=== PATIENT | female | born 1980 | race Caucasian/White ===

== ENCOUNTER 2019-11-20 18:27 | Inpatient (IN) | payer SELFPAY ==
[2019-11-20 19:00] LABS: Influenza A Molecular Negative (Negative); Influenza B Molecular Negative (Negative)
[2019-11-20] MEDS ORDERED: NS 0.9% 1000 ML** 1,000 ML IV.FLUID IV ONE (21:00)
--- NOTE | 2019-11-20 21:00 | ED ---
Influenza-Like Illness - HPI Summary HPI Summary: 39 year old F with hx splenectomy arriving via private car to [facility] accompanied by complains of fever, sore throat, cough, nausea/vomiting/diarrhea, myalgia x2 days. No rash. No recent travel hx. Otherwise healthy. The patient rates the pain 9/10 in severity. Symptoms aggravated by nothing. Symptoms alleviated by nothing. Medications reviewed. - History of Current Complaint Chief Complaint: EDFluSymptoms Hx Obtained From: Patient Onset/Duration: Lasting Days - 2, Still Present Severity: Severe - 05/20 - Allergy/Home Medications Allergies/Adverse Reactions: Allergies Allergy/AdvReac Type Severity Reaction Status Date / Time No Known Allergies Allergy Verified 12/07/18 14:12 Home Medications: Home Medications Guaifenesin [Mucinex] 600 mg PO DAILY PRN 09/15/12 [History Confirmed 08/16/16] Acetaminophen TAB* [Tylenol TAB*] 650 mg PO Q6H PRN #0 tab 08/19/16 [Rx] Amoxicillin/Clavulanate TAB* [Augmentin TAB 875*] 875 mg PO BID #14 tab [Rx] Clindamycin Cap(NF) [Clindamycin Cap 300 mg Cap(NF)] 300 mg PO TID #21 cap 08/19 [Rx] Ibuprofen TAB* [Motrin TAB* 600 MG] 600 mg PO Q6H PRN #0 tab 08/19/16 [Rx] PMH/Surg Hx/FS Hx/Imm Hx Endocrine/Hematology History: Reports: Other Endocrine/Hematological Disorders - splenectomy Denies: Hx Diabetes, Hx Thyroid Disease Cardiovascular History: Denies: Hx Hypertension Respiratory History: Denies: Hx Asthma, Hx Chronic Obstructive Pulmonary Disease (COPD) GI History: Denies: Hx Ulcer - Surgical History Surgery Procedure, Year, and Place: SPLENECTOMY- r/t 2009 Infectious Disease History: No Infectious Disease History: Denies: Hx Clostridium Difficile, Hx Hepatitis, Hx Human Immunodeficiency Virus (HIV), Hx of Known/Suspected MRSA, Hx Shingles, Hx Tuberculosis, Traveled Outside the [place] in Last 30 Days - Family History Known Family History: Negative: Cardiac Disease - Social History Alcohol Use: None Hx Substance Use: No Substance Use Type: Reports: None Hx Tobacco Use: No Smoking Status (MU): Never Smoked Tobacco Review of Systems Positive: Fever Positive: Sore Throat Positive: Cough Positive: Vomiting, Diarrhea, Nausea Positive: Myalgia Negative: Rash All Other Systems Reviewed And Are Negative: Yes Physical Exam - Summary Physical Exam Summary: Appearance: Ill-appearing woman lying in bed comfortably in no acute distress Skin: Warm, dry, no obvious rash Eyes: sclera anicteric, no conjunctival pallor HENT: mucous membranes moist, pharynx appears normal Neck: Supple, nontender Respiratory: Clear to auscultation, no signs of respiratory distress Cardiovascular: Normal S1, S2. No murmurs. Normal distal pulses in tibial and radial bilaterally. Abdomen: Soft, nontender, normal active bowel sounds present Musculoskeletal: Normal, Strength/ROM Intact Neurological: A&Ox3, awake and alert, mentation is normal, speech is fluent and appropriate Psychiatric: affect is normal, does not appear anxious or depressed Triage Information Reviewed: Yes Vital Signs On Initial Exam: Initial Vitals Temp Pulse Resp BP Pulse Ox 100.3 F 101 18 140/94 98 11/20/19 18:31 11/20/19 18:31 11/20/19 18:31 11/20/19 18:31 11/20/19 18:31 Vital Signs Reviewed: Yes Procedures - Sedation Patient Received Moderate/Deep Sedation with Procedure: No Diagnostics - Vital Signs Vital Signs Temp Pulse Resp BP Pulse Ox 11/20/19 19:49 101.4 F 119 18 163/102 97 11/20/19 18:31 100.3 F 101 18 140/94 98 - Laboratory Lab Results: Lab Results 11/20/19 Range/Units 18:35 Influenza A (Rapid) Negative (Negative) Influenza B (Rapid) Negative (Negative) Result Diagrams: 11/25/19 04:57 11/25/19 04:57 Lab Statement: Any lab studies that have been ordered have been reviewed, and results considered in the medical decision making process. - Radiology CXR Radiology Interpretation Completed By: ED Physician - NO ACUTE PROCESS. Pending official report. Re-Evaluation - Re-Evaluation First Eval Re-Evaluation Time: 23:18 Comment: Abbi Ga aware Second Eval Re-Evaluation Time: 23:24 Comment: Abbi Ga called back after speaking with Dr. Brown. They recommend sending off COVID19 and respiratory viral panel for testing and admitting patient to negative pressure unit in ICU Flu Symptom Course/Dx - Course Course Of Treatment: 39 y/o F with hx splenectomy c/o fever, sore throat, cough , nausea/vomiting/diarrhea, myalgia x2 days. No recent travel hx. Otherwise healthy. She is an ill-appearing woman lying in the stretcher comfortably in no acute distress. Bloodwork results with no significant abnormalities except for WBC 31.1, absolute neuts 28.0, absolute lymphs 0.7, absolute monos 2.3, INR 1.29, carbon dioxide 19, AST 12. Influenza tests negative. CXR shows no acute process. In the ED course, the patient was given normal saline fluids, Zofran, Tylenol, morphine, Compazine. Patient has an elevated WBC. No clear source of infection. She was started on vancomycin and Zosyn. Spoke with infectious disease. They recommend collecting and sending COVID19 and respiratory viral panel testing and admitting patient to negative pressure unit in ICU. Spoke with Dr. Bullard. He agrees to admit patient. The patient will be admitted to the hospitalist. - Diagnoses Provider Diagnoses: Sepsis - Physician Notifications Discussed Care Of Patient With: Yovani Bullard Time Discussed With Above Provider: 23:44 Instructed by Provider To: Admit As Inpatient Discharge ED - Sign-Out/Discharge Documenting (check all that apply): Patient Departure - Discharge Plan Condition: Stable Disposition: ADMITTED TO [facility] - Billing Disposition and Condition Condition: STABLE Disposition: Admitted to [facility] - Attestation Statements Document Initiated by Violet: Yes Documenting Scribe: Eneida Corcoran Provider For Whom Violet is Documenting (Include Credential): Edison Mejia MD Scribe Attestation: Eneida Renteria, scribed for Edison Mejia MD on 11/25/19 at 0600. Scribe Documentation Reviewed: Yes Provider Attestation: The documentation as recorded by the Eneida smith accurately reflects the service I personally performed and the decisions made by me, Edison Mejia MD Status of Scribe Document: Viewed
[2019-11-20] MEDS ORDERED: Ondansetron INJ* 2 MG/ML VIAL IV ONE (21:01)
[2019-11-20] MEDS ORDERED: Acetaminophen TAB* 325 MG PO ONE (21:02)
[2019-11-20] MEDS ORDERED: Morphine 4 MG/ML VIAL (1 ml) 4 MG/ML VIAL IV ONE (21:35)
[2019-11-20] MEDS ORDERED: PROCHLORPERAZINE INJ 5 MG/ML 2 ML VIAL IV ONE (22:36)
[2019-11-20 22:40] LABS: Hematocrit 43 % (35-47); Hemoglobin 14.4 g/dL (12.0-16.0); Mean Corpuscular HGB Conc 34 g/dL (31-36); Mean Corpuscular Hemoglobin 30 pg (27-31); Mean Corpuscular Volume 88 fL (80-97); Mean Platelet Volume 7.7 fL (7.4-10.4); Platelet Count 285 10^3/uL (150-450); Red Blood Count 4.84 10^6 /uL (3.70-4.87); Red Cell Distribution Width 14 % (10-15); White Blood Count 31.1 10^3/uL (3.5-10.8)
[2019-11-20 22:44] LABS: Albumin 4.1 g/dL (3.2-5.2); Calcium 9.3 mg/dL (8.6-10.3); Potassium 3.5 mmol/L (3.5-5.0); Total Bilirubin 0.4 mg/dL (0.2-1.0)
[2019-11-20 22:50] LABS: Albumin/Globulin Ratio 1.4 (1-3); BUN/Creatinine Ratio 11.1 (8-20); EGFR African American 110.3 (>60); EGFR Non-African American 91.1 (>60); Total Protein 7.1 g/dL (6.4-8.9)
[2019-11-20 22:57] LABS: Activated Partial Thrombo Time 31.7 seconds (26.0-38.0); INR 1.29 (0.82-1.09)
[2019-11-20 23:03] LABS: ABS Lymphocytes 0.7 10^3/ul (1.0-4.8); ABS Monocytes 2.3 10^3/ul (0-0.8); Lymphocyte % 2.3 %
[2019-11-20 23:15] LABS: Troponin I 0.01 ng/mL (<0.03)
[2019-11-20] MEDS ORDERED: Piperacillin/Tazobac ADVAN(*) 3.375 GM in NS 0.9% 100 ML* 100 ML IVPB ONE (23:15)
[2019-11-20] MEDS ORDERED: Vancomycin(*) 1,000 MG - ED ONCE IV ONE ×2 (23:30)
[2019-11-20] MEDS ORDERED: Vancomycin(*) 1,000 MG VIAL IVPB SCH (23:45)
[2019-11-21] MEDS ORDERED: NS 0.9% 1000 ML** 1,000 ML IV ONE (00:07)
[2019-11-21] MEDS ORDERED: Vancomycin per Pharmacy* NOTE FOLLOW UP SCH (02:00)
[2019-11-21] MEDS ORDERED: Piperacillin/Tazobac ADVAN(*) 3.375 GM in NS 0.9% 100 ML* 100 ML IVPB SCH (04:00)
[2019-11-21] MEDS: NS 0.9% 1000 ML** 1,000 ML IV SCH (04:05)
[2019-11-21 04:48] LABS: Hematocrit 42 % (35-47); Hemoglobin 13.8 g/dL (12.0-16.0); Mean Corpuscular HGB Conc 33 g/dL (31-36); Mean Corpuscular Hemoglobin 29 pg (27-31); Mean Corpuscular Volume 88 fL (80-97); Mean Platelet Volume 7.8 fL (7.4-10.4); Platelet Count 324 10^3/uL (150-450); Red Cell Distribution Width 14 % (10-15); White Blood Count 26.5 10^3/uL (3.5-10.8)
[2019-11-21 04:49] LABS: ABS Basophils 0.1 10^3/ul (0-0.2); ABS Lymphocytes 1.5 10^3/ul (1.0-4.8); Lymphocyte % 5.5 %
[2019-11-21 05:01] LABS: BUN/Creatinine Ratio 8.6 (8-20); Calcium 8.2 mg/dL (8.6-10.3); EGFR African American 113.9 (>60); EGFR Non-African American 94.2 (>60); Magnesium 1.8 mg/dL (1.9-2.7); Potassium 3.5 mmol/L (3.5-5.0)
[2019-11-21] MEDS ORDERED: Acetaminophen TAB* 325 MG PO PRN (06:53)
[2019-11-21] MEDS ORDERED: Ketorolac INJ* 30 MG/ML 1 ML VIAL IV ONE (06:55)
[2019-11-21 07:29] LABS: Urine Appearance Clear; Urine Color Straw
[2019-11-21 07:30] LABS: Urine Bilirubin Negative (Negative); Urine Blood Negative (Negative); Urine Glucose Negative (Negative); Urine Ketones 1+ (Negative); Urine Nitrite Negative (Negative); Urine Protein Negative (Negative); Urine Specific Gravity 1.025 (1.010-1.030); Urine Urobilinogen Negative (Negative)
[2019-11-21] MEDS: Vancomycin(*) 1,000 MG in NS 0.9% 250 ML* 250 ML IV SCH ×2 (08:06→16:17)
[2019-11-21] MEDS ORDERED: Cefepime 2 GM in Dextrose(*) 2 GM/50 ML BAG IV SCH (12:00)
[2019-11-21] MEDS ORDERED: cefTRIAXone(*) 2 GM in NS 0.9% 100 ML* 100 ML IVPB SCH ×2 (12:00→20:00)
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
[2019-11-21] MEDS: Ampicillin ADVAN(*) 2 GM in NS 0.9% 100 ML* 100 ML IVPB SCH ×2 (12:46→16:17)
[2019-11-21 13:10] LABS: Rapid Strep Molecular Positive (Negative)
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
[2019-11-21 14:45] LABS: Body Fluid Source Cerebral Spinal
[2019-11-21 15:09] LABS: CSF Glucose 71 mg/dL (40-70)
[2019-11-21] MEDS: Acetaminophen TAB* 325 MG PO SCH ×2 (16:17→21:04)
[2019-11-21] MEDS ORDERED: Ondansetron INJ* 2 MG/ML VIAL IV PRN (16:58)
[2019-11-21] MEDS: Ketorolac INJ* 30 MG/ML 1 ML VIAL IV PUSH PRN (17:43)
[2019-11-21] MEDS: Enoxaparin(*) 40 MG/0.4 ML SYR SUBCUT SCH (17:44)
--- NOTE | 2019-11-21 17:47 | PN ---
Hospitalist Progress Note Date of Service: 11/21/19 Update in plan of care While initially patient was PUI for COVID 19 she has clear source of sepsis from her strep A pharyngitis LP revealed thankfully no e/o meningitis with low CSF cell count no organisms no neutrophils and normal Glu DC all precautions in conjunction with discussion with charge nursing staff Discussed case with Dr. Gao and also with Abbi Ga and Carter Brown
[2019-11-21] MEDS ORDERED: Iohexol 300* (CONTRAST) 10 ML SDV IV ONE (18:01)
[2019-11-21] MEDS: cefTRIAXone(*) 1 GM in NS 0.9% 50 ML* 50 ML IVPB SCH (20:14)
--- NOTE | 2019-11-21 23:31 | PRO ---
DATE OF PROCEDURE: 11/21/19 - ROOM #452 PRE-PROCEDURE DIAGNOSIS: Rule out meningitis. POST-PROCEDURE DIAGNOSIS: Rule out meningitis. SUMMARY: Asked by the Medical Service to do a lumbar puncture for Callie Tipton who presents with altered mental status, fever, elevated white count as well as positive for serology of group A strep. The patient's procedure was consented through her due to the patient's altered mental status. We also did discuss procedure with the patient as well and she elected to proceed. The risks including but not limited to bleeding, bruising, infection, nerve injury were discussed with the patient as well as headache. The patient denies history of coagulopathies. She is not currently on any anticoagulant medication. She is not allergic to any medications. Her home medications include Tylenol as well as ibuprofen. White count is 26.5, hemoglobin 13, hematocrit 42, platelet count 324. INR 1.29. PTT is 31.7. At this point, although the patient's coagulopathies are slightly coagulopathic with borderline INR due to her severe toxic status as well as her symptomatology , the risks for proceeding with lumbar puncture are outweighed by the risk for not being able to diagnose her current underlying cause of altered mental status , fever, elevated white count. This also in light of the fact that she has tested for strep A puts her at risk for meningitis. Again, the risks and benefits of the procedure were discussed with the patient today as well as her by the medical staff and consent was obtained. DESCRIPTION OF PROCEDURE: The patient was placed in the seated position. She was unable to maintain the position independently so nursing did aid in this. Her back was prepped and draped in the usual sterile fashion with chlorhexidine skin prep. A time-out was performed. A 1% lidocaine plain was used to anesthetize the skin and subcutaneous tissues. A 20-gauge introducer along with a 25-gauge Edu needle was used to access the intrathecal space. Crystal clear, free flowing CSF was seen after 2 needle passes. A total of 10 cc of CSF was sent to the lab for further testing as requested by the Medical Service. The patient tolerated the procedure well. She did not experience any focal neurological deficits, paresthesias. There was no neuraxial heme. Her back was then cleansed and dressed with a Band-Aid. I did advice the nursing staff to cleanse her back with soap and water in an effort to remove as much of the chlorhexidine skin prep to avoid skin irritation and they did verbalize understanding. We again advised the patient to lay supine for the next several hours and rest with proper hydration to avoid CSF headaches. She will follow up with me only as needed. [id number]/[facility] #: [id number]
[2019-11-22] MEDS: Acetaminophen TAB* 325 MG PO SCH ×6 (01:09→20:26)
[2019-11-22] MEDS: traMADol TAB* 50 MG PO PRN ×4 (01:09→18:32)
[2019-11-22] MEDS: NS 0.9% 1000 ML** 1,000 ML IV SCH ×2 (02:50→16:35)
[2019-11-22] MEDS: Ketorolac INJ* 30 MG/ML 1 ML VIAL IV PUSH PRN ×3 (02:50→21:03)
[2019-11-22 06:01] LABS: Hematocrit 38 % (35-47); Hemoglobin 12.7 g/dL (12.0-16.0); Mean Corpuscular HGB Conc 33 g/dL (31-36); Mean Corpuscular Hemoglobin 28 pg (27-31); Mean Corpuscular Volume 86 fL (80-97); Mean Platelet Volume 8.2 fL (7.4-10.4); Platelet Count 311 10^3/uL (150-450); Red Blood Count 4.46 10^6 /uL (3.70-4.87); Red Cell Distribution Width 14 % (10-15); White Blood Count 27.9 10^3/uL (3.5-10.8)
[2019-11-22 06:13] LABS: BUN/Creatinine Ratio 9.3 (8-20); Calcium 8.5 mg/dL (8.6-10.3); EGFR African American 153.7 (>60); Potassium 3.4 mmol/L (3.5-5.0)
[2019-11-22 06:43] LABS: ABS Basophils 0.2 10^3/ul (0-0.2); ABS Eosinophils 0.1 10^3/ul (0-0.6); ABS Lymphocytes 1.8 10^3/ul (1.0-4.8); ABS Monocytes 2.9 10^3/ul (0-0.8); ABS Neutrophils 22.9 10^3/ul (1.5-7.7); Eosinophil % 0.4 %; Lymphocyte % 6.5 %
[2019-11-22] MEDS ORDERED: Vancomycin Trough Check NOTE FOLLOW UP ONE (07:30)
[2019-11-22] MEDS ORDERED: Magnesium Sulfate 2 GM IV* 2 GM/50 ML BAG IVPB ONE (07:46)
[2019-11-22] MEDS ORDERED: Potassium Chlor TAB* 20 MEQ TAB.ER PO ONE (07:46)
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
[2019-11-22] MEDS ORDERED: KCL 20 MEQ/100 ML IVPREMIX* 20 MEQ/100 ML BAG IV ONE (08:49)
[2019-11-22] MEDS ORDERED: Benzocaine/Menthol LOZ* 1 LOZENGE PO PRN (09:45)
[2019-11-22] MEDS ORDERED: Lidocaine 2% VISCOUS* 15 ML UDC SWISH SPIT PRN (09:48)
[2019-11-22] MEDS ORDERED: Ketorolac INJ* 15 MG/ML 1 ML VIAL IV PUSH ONE (14:17)
[2019-11-22] MEDS ORDERED: Dexamethasone IV* 4 MG/ML 1 ML (4 MG) IV SLOW PU ONE (14:49)
[2019-11-22] MEDS: Enoxaparin(*) 40 MG/0.4 ML SYR SUBCUT SCH (17:14)
[2019-11-22 17:21] LABS: Urine Benzodiazepine Screen None Detected (None Detect); Urine Opiates Screen None Detected (None Detect)
[2019-11-22] MEDS: cefTRIAXone(*) 1 GM in NS 0.9% 50 ML* 50 ML IVPB SCH (21:03)
[2019-11-22] MEDS ORDERED: Butalb/Acetamin/Caff TAB* 1 TAB PO ONE (21:58)
[2019-11-23] MEDS: traMADol TAB* 50 MG PO PRN (00:23)
[2019-11-23] MEDS: Acetaminophen TAB* 325 MG PO SCH ×2 (00:25→04:39)
[2019-11-23] MEDS: NS 0.9% 1000 ML** 1,000 ML IV SCH ×4 (01:49→20:16)
--- NOTE | 2019-11-23 04:42 | PN ---
Hospitalist Progress Note Date of Service: 11/23/19 Pt had complained of 7/10 headache pain and continued poor sleep. Has been getting tramadol, toradol and throat lozenges. Fiorcet given with reportedly good effect.
[2019-11-23 06:40] LABS: ABS Basophils 0.1 10^3/ul (0-0.2); ABS Lymphocytes 1.1 10^3/ul (1.0-4.8); ABS Monocytes 1.4 10^3/ul (0-0.8); ABS Neutrophils 15.6 10^3/ul (1.5-7.7); Eosinophil % 0.1 %; Hematocrit 35 % (35-47); Mean Corpuscular HGB Conc 34 g/dL (31-36); Mean Corpuscular Hemoglobin 29 pg (27-31); Mean Corpuscular Volume 84 fL (80-97); Nucleated Red Blood Cells % 0.1; Platelet Count 320 10^3/uL (150-450); Red Blood Count 4.17 10^6 /uL (3.70-4.87); Red Cell Distribution Width 14 % (10-15); White Blood Count 18.2 10^3/uL (3.5-10.8)
[2019-11-23] MEDS: Ketorolac INJ* 30 MG/ML 1 ML VIAL IV PUSH PRN ×3 (06:40→20:16)
[2019-11-23 06:56] LABS: BUN/Creatinine Ratio 10.2 (8-20); Calcium 8.7 mg/dL (8.6-10.3); EGFR African American 171.9 (>60); EGFR Non-African American 142.1 (>60); Potassium 3.6 mmol/L (3.5-5.0)
[2019-11-23] MEDS ORDERED: Acetaminophen TAB* 325 MG PO PRN (07:36)
--- NOTE | 2019-11-23 07:36 | PN ---
Subjective Date of Service: 11/23/19 Interval History: Callie continued to have headache overnight; she got a dose of fioricet with some improvement. Tolerating an unrestricted diet (has had mac n cheese and marvel estela so far). Right now the sore throat is worse than the headache. When she takes pills she feels like they get stuck in her throat. Lozenges are helping. Objective Active Medications: Acetaminophen (Tylenol Tab*) 650 mg PO Q4H [facility] Last Admin: 11/23/19 04:39 Dose: Not Given Enoxaparin Sodium (Lovenox(*)) 40 mg SUBCUT Q24H [facility] Last Admin: 11/22/19 17:14 Dose: 40 mg Ceftriaxone Sodium 1 gm/ (Sodium Chloride) 50 mls @ 100 mls/hr IVPB Q24H [facility] Last Admin: 11/22/19 21:03 Dose: 100 mls/hr Sodium Chloride (Ns 0.9% 1000 Ml) 1,000 mls @ 175 mls/hr IV PER RATE [facility] Last Admin: 11/23/19 01:49 Dose: 175 mls/hr Ketorolac Tromethamine (Toradol Inj*) 30 mg IV PUSH Q6H PRN PRN Reason: PAIN - MODERATE Last Admin: 11/23/19 06:40 Dose: 30 mg Lidocaine (Xylocaine 2% Viscous*) 15 ml SWISH SPIT TID PRN PRN Reason: SORE THROAT Ondansetron HCl (Zofran Inj*) 4 mg IV Q8H PRN PRN Reason: NAUSEA Last Admin: 11/22/19 16:29 Dose: 4 mg Throat Lozenges (Chloraseptic Mirella*) 1 mirella PO Q6H PRN PRN Reason: SORE THROAT Last Admin: 11/22/19 10:56 Dose: 1 mirella Tramadol HCl (Ultram*) 75 mg PO Q6H PRN PRN Reason: PAIN - MODERATE Last Admin: 11/23/19 00:23 Dose: 75 mg Vital Signs - 8 hr 11/23/19 11/23/19 11/23/19 00:01 00:23 01:49 Temperature 98.2 F Pulse Rate 63 Respiratory 16 18 20 Rate Blood Pressure 135/76 (mmHg) O2 Sat by Pulse 93 Oximetry 11/23/19 11/23/19 11/23/19 03:17 03:44 04:39 Temperature 97.5 F Pulse Rate 64 Respiratory 16 16 16 Rate Blood Pressure 121/72 (mmHg) O2 Sat by Pulse 97 Oximetry Oxygen Devices in Use Now: None Appearance: more alert than yesterday, tired, but nontoxic appearing Eyes: No Scleral Icterus Ears/Nose/Mouth/Throat: - - dry mucosa. tonsils are edematous and purulent. airway patent. breathing comfortably. Neck: - - +b/l tender adenopathy Respiratory: Symmetrical Chest Expansion and Respiratory Effort, Clear to Auscultation Cardiovascular: NL Sounds; No Murmurs; No JVD, RRR Extremities: No Edema Skin: No Rash or Ulcers Neurological: Alert and Oriented x 3 Result Diagrams: 11/23/19 06:22 11/23/19 06:22 Additional Lab and Data: Lab Results 11/20/19 Range/Units 18:35 Influenza A (Rapid) Negative (Negative) Influenza B (Rapid) Negative (Negative) Microbiology and Other Data: Microbiology 11/20/19 22:25 Aerobic Blood Culture - Preliminary Blood Venous No Growth Day 2 Anaerobic Blood Culture - Preliminary No Growth Day 2 11/20/19 21:32 Aerobic Blood Culture - Preliminary Blood Venous No Growth Day 2 Anaerobic Blood Culture - Preliminary No Growth Day 2 11/21/19 11:58 CSF Gram Stain (Tube 3) - Final Cerebral Spinal Fluid CSF Culture - Preliminary No Growth Day 1 11/21/19 07:05 Legionella Urinary Antigen - Final Urine Negative Legionella Antigen Streptococcus pneumoniae Ag Screen - Final Negative S. pneumo Antigen Assess/Plan/Problems-Billing Assessment: 39 F with history of splenectomy presented on 10/23 with fever, headache, vomiting, sore throat and dry cough. Found to be septic (leucocytosis, fever) secondary to strep pharyngitis. - Patient Problems (1) Sepsis Current Visit: No Status: Acute Comment: -resolved, leukocytosis also improving -continue IVF resuscitation -started on IV abx on 11/20, initially broad spectrum to cover meningitis; de- escalated to cover strep pharyngitis only -LP done: negative for Meningitis -CXR: No acute pathology -Urine: ketones positive -blood culture negative so far -source is pharyngitis (2) Pharyngitis Current Visit: Yes Status: Acute Code(s): J02.9 - ACUTE PHARYNGITIS, UNSPECIFIED SNOMED Code(s): 271889232 Comment: -rapid strep test positive, flu and monospot negative -ceftriaxone day 3 -pain control with ketorolac, lozengez -decadron to decrease inflammation -CT neck negative for abscess (3) History of splenectomy Current Visit: Yes Status: Acute Code(s): Z90.81 - ACQUIRED ABSENCE OF SPLEEN SNOMED Code(s): 517946778 Comment: -has not received prophylactic vaccine -high risk for strept, N. meningitis and Hib. -will need vaccination: MENACWY, MenB, Pneumococcal, HiB as an outpatient (4) DVT prophylaxis Current Visit: No Status: Acute Code(s): AOS6392 - SNOMED Code(s): 637279744 Comment: Edilberto (5) Full code status Current Visit: Yes Status: Acute Code(s): Z78.9 - OTHER SPECIFIED HEALTH STATUS SNOMED Code(s): 046167053 Status and Disposition: Inpatient Still unable to take pills, will need IV abx until able to swallow pills
[2019-11-23] MEDS: Dexamethasone IV* 4 MG/ML 1 ML (4 MG) IV SLOW PU SCH ×3 (08:08→20:08)
[2019-11-23] MEDS: Benzocaine/Menthol LOZ* 1 LOZENGE PO PRN ×3 (08:08→23:46)
[2019-11-23] MEDS: Enoxaparin(*) 40 MG/0.4 ML SYR SUBCUT SCH (17:41)
[2019-11-23] MEDS: cefTRIAXone(*) 1 GM in NS 0.9% 50 ML* 50 ML IVPB SCH (20:07)
[2019-11-24] MEDS ORDERED: Morphine INJ* 2 MG/ML 1 ML SYRINGE (TWO MG - NEW SYRINGE VERSION) IV ONE (00:06)
[2019-11-24] MEDS: Dexamethasone IV* 4 MG/ML 1 ML (4 MG) IV SLOW PU SCH ×2 (01:59→08:01)
[2019-11-24] MEDS: Ketorolac INJ* 30 MG/ML 1 ML VIAL IV PUSH PRN (02:04)
[2019-11-24 06:26] LABS: ABS Basophils 0.1 10^3/ul (0-0.2); ABS Lymphocytes 1.2 10^3/ul (1.0-4.8); ABS Monocytes 0.6 10^3/ul (0-0.8); ABS Neutrophils 14.2 10^3/ul (1.5-7.7); Hematocrit 36 % (35-47); Hemoglobin 12.3 g/dL (12.0-16.0); Lymphocyte % 7.7 %; Mean Corpuscular HGB Conc 34 g/dL (31-36); Mean Corpuscular Hemoglobin 29 pg (27-31); Mean Corpuscular Volume 85 fL (80-97); Mean Platelet Volume 8.5 fL (7.4-10.4); Nucleated Red Blood Cells % 0.1; Platelet Count 392 10^3/uL (150-450); Red Blood Count 4.24 10^6 /uL (3.70-4.87); Red Cell Distribution Width 14 % (10-15); White Blood Count 16.1 10^3/uL (3.5-10.8)
[2019-11-24 06:46] LABS: BUN/Creatinine Ratio 11.8 (8-20); Calcium 9.2 mg/dL (8.6-10.3); EGFR African American 164.2 (>60); EGFR Non-African American 135.7 (>60); Potassium 3.8 mmol/L (3.5-5.0)
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
[2019-11-24] MEDS: NS 0.9% 1000 ML** 1,000 ML IV SCH (08:01)
[2019-11-24] MEDS: Benzocaine/Menthol LOZ* 1 LOZENGE PO PRN ×3 (09:44→21:53)
[2019-11-24] MEDS: Ibuprofen ADULT LIQ* 600 MG/30 ML UDC PO PRN ×3 (11:10→21:43)
[2019-11-24 15:29] LABS: HIV 4th Generation Nonreactive (Nonreactive)
[2019-11-24] MEDS: Enoxaparin(*) 40 MG/0.4 ML SYR SUBCUT SCH (17:48)
[2019-11-24] MEDS: Amoxicillin/Clavulanate TAB* 875 MG PO SCH (21:44)
[2019-11-25] MEDS: Ibuprofen ADULT LIQ* 600 MG/30 ML UDC PO PRN ×2 (03:28→09:22)
[2019-11-25] MEDS: Benzocaine/Menthol LOZ* 1 LOZENGE PO PRN (03:28)
[2019-11-25 05:23] LABS: Hematocrit 36 % (35-47); Hemoglobin 12.1 g/dL (12.0-16.0); Mean Corpuscular HGB Conc 34 g/dL (31-36); Mean Corpuscular Hemoglobin 29 pg (27-31); Mean Corpuscular Volume 85 fL (80-97); Mean Platelet Volume 8.8 fL (7.4-10.4); Platelet Count 387 10^3/uL (150-450); Red Blood Count 4.26 10^6 /uL (3.70-4.87); Red Cell Distribution Width 13 % (10-15); White Blood Count 19.9 10^3/uL (3.5-10.8)
[2019-11-25 05:40] LABS: BUN/Creatinine Ratio 18.8 (8-20); Calcium 8.8 mg/dL (8.6-10.3); EGFR African American 126.3 (>60); EGFR Non-African American 104.4 (>60)
[2019-11-25 06:00] LABS: Potassium 3.9 mmol/L (3.5-5.0)
[2019-11-25 06:38] LABS: ABS Basophils 0.2 10^3/ul (0-0.2); ABS Eosinophils 0.2 10^3/ul (0-0.6); ABS Lymphocytes 4.8 10^3/ul (1.0-4.8); ABS Monocytes 1.9 10^3/ul (0-0.8); ABS Neutrophils 12.8 10^3/ul (1.5-7.7); Eosinophil % 1.1 %; Nucleated Red Blood Cells % 0.1
[2019-11-25 08:12] LABS: C Reactive Protein 12.58 mg/L (<8.01)
[2019-11-25] MEDS ORDERED: methylPREDNISolone TAB* 4 MG PO SCH (09:00)
[2019-11-25] MEDS: Amoxicillin/Clavulanate TAB* 875 MG PO SCH (09:22)
[2019-11-25 11:07] VITALS: BP 124/64
--- NOTE | 2019-11-25 11:36 | PN ---
Subjective Date of Service: 11/25/19 Interval History: Ms. Tipton reports that she is feeling much better. She is able to tolerate oral intake and swallow pills. She is happy and agreeable with the plan for discharge to home. Objective Active Medications: Amoxicillin/Clavulanate Potassium (Augmentin Tab*) 875 mg PO BID [facility] Enoxaparin Sodium (Lovenox(*)) 40 mg SUBCUT Q24H [facility] Ibuprofen (Motrin Liq Adult*) 600 mg PO QID PRN Lidocaine (Xylocaine 2% Viscous*) 15 ml SWISH SPIT TID PRN Methylprednisolone (Medrol Tab*) 4 mg PO DAILY [facility] Throat Lozenges (Chloraseptic Mirella*) 1 mirella PO Q1H PRN Vital Signs: Temp Pulse Resp BP Pulse Ox 98.1 F 74 18 124/64 95 11/25/19 11:06 11/25/19 11:06 11/25/19 11:06 11/25/19 11:06 11/25/19 11:06 Oxygen Devices in Use Now: None Appearance: Female lying in bed in NAD Eyes: No Scleral Icterus Ears/Nose/Mouth/Throat: Mucous Membranes Moist Neck: Trachea Midline Respiratory: Symmetrical Chest Expansion and Respiratory Effort, Clear to Auscultation Cardiovascular: NL Sounds; No Murmurs; No JVD, No Edema Abdominal: NL Sounds; No Tenderness; No Distention Extremities: No Edema Skin: No Rash or Ulcers Neurological: Alert and Oriented x 3, NL Muscle Strength and Tone Nutrition: Taking PO's Result Diagrams: 11/25/19 04:57 11/25/19 04:57 Additional Lab and Data: . Microbiology and Other Data: . Assess/Plan/Problems-Billing Assessment: 39 F with history of splenectomy presented on 10/23 with fever, headache, vomiting, sore throat and dry cough. Found to be septic (leucocytosis, fever) secondary to strep pharyngitis/tonsillitis. - Patient Problems (1) Sepsis Comment: -resolved, WBC remain elevated due to steroids -tolerating oral intake -started on IV abx on 11/20, initially broad spectrum to cover meningitis; de- escalated to cover strep pharyngitis only -LP done: negative for Meningitis -CXR: No acute pathology -Urine: ketones positive -blood culture negative so far -source is pharyngitis (2) Pharyngitis Comment: -Pharyngotonsillitis -rapid strep test positive, flu and monospot negative -switched to oral(started on 11/20- 11/26) -pain control with lozengez; changed to PO NSAIDS -decadron to decrease inflammation -CT neck negative for abscess -Given her sx, we will also rule out Gono/Chlamy- swab sent (3) History of splenectomy Comment: -traumatic -has not received prophylactic vaccine -high risk for strept, N. meningitis and Hib. -will need vaccination: MENACWY, MenB, Pneumococcal, HiB as an outpatient (4) DVT prophylaxis Comment: Edilberto (5) Full code status Comment: Status and Disposition: Inpatient. Discharge to home.
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
[2019-11-25 22:44] LABS: C. trach Amplified RNA Negative (Negative); N Gonorr Amplified RNA Negative (Negative); Source THROAT
== END 2019-11-25 13:20 | disposition home or self-care (01) | DRG 872 ==
LOC: ED 18:27 → MEDTELE 11-21 01:38
PROVIDERS: ADMIT Family Medicine; ATTEND Internal Medicine
PROC: 009U3ZX Drainage of Spinal Canal, Percutaneous Approach, Diagnostic (ICD-10-PCS; principal; 2019-11-21)
DX: A41.9 Sepsis, unspecified organism (principal); J02.0 Streptococcal pharyngitis; R51 Headache; Z90.81 Acquired absence of spleen
CPT/HCPCS: 36415; 70450; 70491; 71045; 80048; 80053; 80202; 80307; 81003; 82945; 83605; 83735; 84157; 84484; 85025; 85610; 85730; 86140; 86308; 87040; 87070; 87205; 87389; 87491; 87591; 87651; 87899; 89051; 96374; 96375; 99284; A9270-GY; G0480; J0692; J0696; J0780; J1100; J1650; J1885; J2270; J2405; J2543; J3370; J3475; J3480; J7509; Q9967

== ENCOUNTER 2023-10-17 04:04 | Inpatient (IN) ==
[2023-10-17 04:40] LABS: Rapid Strep Molecular Positive (Negative)
[2023-10-17] MEDS: Ondansetron ODT 4 mg TAB 4 MG TAB SL ONE (04:50)
[2023-10-17] MEDS: Lactated Ringers 1000 ml BAG 1,000 ML IV ONE (05:50)
[2023-10-17] MEDS ORDERED: Amoxicillin SUSP ORALSYR 80 MG/ML (400 mg/5 ml) PO ONE (06:00)
[2023-10-17 06:04] LABS: Hematocrit 40.8 % (35-45); Hemoglobin 13.6 g/dL (11.5-14.3); Mean Corpuscular Hemoglobin 28.1 pg (27-33); Mean Corpuscular Hgb Conc 33.4 g/dL (31-36); Mean Corpuscular Volume 83.9 fL (80-97); Mean Platelet Volume 7.6 fL (7.5-11.2); Platelet Count 436 10^3/uL (150-450); Red Blood Count 4.86 10^6/uL (3.63-4.92); Red Cell Distribution Width 14.4 % (12-17); White Blood Count 40.3 10^3/uL (3.8-11.8)
[2023-10-17] MEDS: Amoxicillin SUSP ORALSYR 80 MG/ML (400 mg/5 ml) PO ONE (06:14)
[2023-10-17 06:20] LABS: Albumin 4.1 g/dL (3.2-5.2); Albumin/Globulin Ratio 1.2 (1-3); C Reactive Protein 106.25 mg/L (<8.01); Calcium 9.8 mg/dL (8.6-10.3); Creatinine, Serum 0.74 mg/dL (0.51-0.95); Globulin 3.5 g/dL (2-4); Potassium 3.7 mmol/L (3.5-5.0); Total Bilirubin 0.3 mg/dL (0.2-1.0); Total Protein 7.6 g/dL (6.4-8.9); eGFR CKD-EPI 104.2 (>60)
[2023-10-17] MEDS: Vancomycin 1,500 MG in NS 0.9% 250 ml 250 ML IVPB ONE (06:24)
[2023-10-17] MEDS: Clindamycin 600 MG/D5W BAG 600 MG/50 ML BAG IV ONE (06:27)
[2023-10-17] MEDS: cefTRIAXone 1 gm/50 mL D5W 1 GM/50 ML BAG IV ONE (06:27)
[2023-10-17] MEDS: Morphine 4 MG/ML VIAL (1 ml) IV ONE (06:35)
[2023-10-17 06:52] LABS: ABS Lymphocytes 1.6 10^3/uL (1.0-4.8); ABS Monocytes 3.3 10^3/uL (0.0-0.9); ABS Neutrophils 35.3 10^3/uL (1.5-7.6); Eosinophil % 0.1 %; Lymphocyte % 3.9 %
[2023-10-17] MEDS: Iohexol 300 (CONTRAST) 10 ML SDV IV ONE (08:16)
[2023-10-17] MEDS ORDERED: Ampicillin ADVAN 2 GM in NS 0.9% 100 ml BAG 100 ML IVPB SCH (11:00)
[2023-10-17] MEDS: Ampicillin ADVAN 2 GM in NS 0.9% 100 ml BAG 100 ML IVPB SCH ×2 (11:17→22:14)
[2023-10-17] MEDS: Enoxaparin 40 MG/0.4 ML SYR SUBCUT SCH (11:22)
[2023-10-17] MEDS: Pantoprazole VIAL 40 MG VIAL IV SCH (11:23)
[2023-10-17] MEDS: Morphine 2 MG/ML SYRINGE IV PRN (11:25)
[2023-10-17] MEDS: Lactated Ringers 1000 ml BAG 1,000 ML IV SCH (11:26)
[2023-10-17] MEDS: Dexamethasone IV 4 MG/ML VIAL 1 ml VIAL IV SLOW PU SCH (12:55)
[2023-10-18 07:26] LABS: Hematocrit 37.8 % (35-45); Hemoglobin 12.3 g/dL (11.5-14.3); Mean Corpuscular Hemoglobin 27.5 pg (27-33); Mean Corpuscular Hgb Conc 32.5 g/dL (31-36); Mean Corpuscular Volume 84.6 fL (80-97); Mean Platelet Volume 7.8 fL (7.5-11.2); Platelet Count 414 10^3/uL (150-450); Red Blood Count 4.47 10^6/uL (3.63-4.92); Red Cell Distribution Width 14.5 % (12-17); White Blood Count 26.6 10^3/uL (3.8-11.8)
[2023-10-18 07:46] LABS: Calcium 9.5 mg/dL (8.6-10.3); Creatinine, Serum 0.75 mg/dL (0.51-0.95); Phosphorus 2.8 mg/dL (2.5-5.0); Potassium 4.4 mmol/L (3.5-5.0); eGFR CKD-EPI 102.5 (>60)
[2023-10-18 07:48] LABS: ABS Neutrophils 24.6 10^3/uL (1.5-7.6); ABS Nucleated RBC 0.01 10^3/ul; Lymphocyte % 3.9 %
[2023-10-18 09:08] LABS: Urine Appearance Turbid; Urine Bilirubin Negative (Negative); Urine Blood Negative (Negative); Urine Color Yellow; Urine Glucose Trace (Negative); Urine Ketones 1+ (Negative); Urine Nitrite 1+ (Negative); Urine Protein 1+ (>=30 mg/dL) (Negative); Urine Specific Gravity 1.047 (1.002-1.030); Urine Urobilinogen 1+ (Negative); Urine pH 5.5 (5.0-8.0)
[2023-10-18 09:11] LABS: Urine Bacteria 2+ /HPF (Absent); Urine Red Blood Cell Absent /HPF (0-Trace); Urine Squamous Epithelial Cell Present /HPF (Absent); Urine White Blood Cell 3+(>20/hpf) /HPF (0-Trace)
[2023-10-18] MEDS: HYDROmorphone 1 MG/1 ML SYRINGE IV SLOW PU PRN (09:17)
[2023-10-18] MEDS: Benzocaine/Menthol LOZ PO PRN (09:17)
[2023-10-18] MEDS: Polyethylene Glycol 3350 17 GM PACKET PO PRN (11:45)
[2023-10-18] MEDS: NS 0.9% 1000 ml BAG 1,000 ML IV SCH (11:47)
[2023-10-18] MEDS ORDERED: Naloxone Nasal Spray 4 MG/0.1 ML NASAL.SPR INTRANASAL PRN (12:02)
[2023-10-18] MEDS ORDERED: cefTRIAXone 1 gm/50 mL D5W 1 GM/50 ML BAG IV SCH (15:00)
[2023-10-18] MEDS: cefTRIAXone 1 GM Q24H (ADVAN) IVPB SCH (15:53)
[2023-10-19 07:28] LABS: ABS Basophils 0.1 10^3/uL (0.0-0.1); ABS Lymphocytes 1.6 10^3/uL (1.0-4.8); ABS Monocytes 0.9 10^3/uL (0.0-0.9); ABS Neutrophils 14.5 10^3/uL (1.5-7.6); ABS Nucleated RBC 0.03 10^3/ul; Hematocrit 36.9 % (35-45); Hemoglobin 11.8 g/dL (11.5-14.3); Lymphocyte % 9.6 %; Mean Corpuscular Hemoglobin 27.4 pg (27-33); Mean Corpuscular Volume 85.4 fL (80-97); Mean Platelet Volume 8.5 fL (7.5-11.2); Nucleated Red Blood Cells % 0.2 %/100WBC (0.0-0.8); Platelet Count 417 10^3/uL (150-450); Red Blood Count 4.32 10^6/uL (3.63-4.92); Red Cell Distribution Width 14.6 % (12-17); White Blood Count 17.1 10^3/uL (3.8-11.8)
[2023-10-19] MEDS: Dexamethasone IV 4 MG/ML VIAL 1 ml VIAL IV SLOW PU SCH (14:20)
[2023-10-19] MEDS: cefTRIAXone 1 gm/50 mL D5W 1 GM/50 ML BAG IV SCH (15:23)
[2023-10-19] MEDS: Benzocaine/Menthol LOZ PO PRN (21:56)
[2023-10-20 07:13] LABS: Hematocrit 37.3 % (35-45); Hemoglobin 12.2 g/dL (11.5-14.3); Mean Corpuscular Hemoglobin 27.4 pg (27-33); Mean Corpuscular Hgb Conc 32.6 g/dL (31-36); Mean Corpuscular Volume 84.1 fL (80-97); Mean Platelet Volume 8.5 fL (7.5-11.2); Platelet Count 446 10^3/uL (150-450); Red Blood Count 4.44 10^6/uL (3.63-4.92); Red Cell Distribution Width 14.1 % (12-17); White Blood Count 16.1 10^3/uL (3.8-11.8)
[2023-10-20 07:28] LABS: Calcium 9.2 mg/dL (8.6-10.3); Creatinine, Serum 0.75 mg/dL (0.51-0.95); eGFR CKD-EPI 102.5 (>60)
[2023-10-20 08:54] LABS: ABS Basophils 0.1 10^3/uL (0.0-0.1); ABS Lymphocytes 1.9 10^3/uL (1.0-4.8); ABS Monocytes 0.6 10^3/uL (0.0-0.9); ABS Neutrophils 13.5 10^3/uL (1.5-7.6); ABS Nucleated RBC 0.02 10^3/ul; Eosinophil % 0.1 %; Lymphocyte % 11.7 %; Nucleated Red Blood Cells % 0.2 %/100WBC (0.0-0.8)
[2023-10-20] MEDS: HYDROcodone/ACET. 7.5/325 LIQ 15 ML UDC PO PRN (13:07)
[2023-10-21 06:27] LABS: Hematocrit 38.1 % (35-45); Hemoglobin 12.4 g/dL (11.5-14.3); Mean Corpuscular Hemoglobin 27.3 pg (27-33); Mean Corpuscular Hgb Conc 32.5 g/dL (31-36); Mean Corpuscular Volume 83.9 fL (80-97); Mean Platelet Volume 8.8 fL (7.5-11.2); Platelet Count 448 10^3/uL (150-450); Red Blood Count 4.54 10^6/uL (3.63-4.92); Red Cell Distribution Width 14.2 % (12-17); White Blood Count 25.3 10^3/uL (3.8-11.8)
[2023-10-21 06:45] LABS: Calcium 8.9 mg/dL (8.6-10.3); Creatinine, Serum 0.66 mg/dL (0.51-0.95); Potassium 3.7 mmol/L (3.5-5.0); eGFR CKD-EPI 112.9 (>60)
[2023-10-21 07:16] LABS: ABS Basophils 0.2 10^3/uL (0.0-0.1); ABS Eosinophils 0.1 10^3/uL (0.0-0.5); ABS Lymphocytes 5.9 10^3/uL (1.0-4.8); ABS Monocytes 3.1 10^3/uL (0.0-0.9); ABS Nucleated RBC 0.03 10^3/ul; Eosinophil % 0.3 %; Lymphocyte % 23.4 %; Nucleated Red Blood Cells % 0.1 %/100WBC (0.0-0.8); RBC Morphology Normal (Normal)
[2023-10-21] MEDS: Dexamethasone IV 4 MG/ML VIAL 1 ml VIAL IV SLOW PU SCH (08:12)
[2023-10-21] MEDS: HYDROmorphone 1 MG/1 ML SYRINGE IV SLOW PU PRN (11:55)
[2023-10-22 06:58] LABS: Hematocrit 43.9 % (35-45); Hemoglobin 14.1 g/dL (11.5-14.3); Mean Corpuscular Hemoglobin 27.5 pg (27-33); Mean Corpuscular Hgb Conc 32.2 g/dL (31-36); Mean Corpuscular Volume 85.5 fL (80-97); Mean Platelet Volume 8.3 fL (7.5-11.2); Platelet Count 416 10^3/uL (150-450); Red Blood Count 5.13 10^6/uL (3.63-4.92); Red Cell Distribution Width 14.3 % (12-17); White Blood Count 27.2 10^3/uL (3.8-11.8)
[2023-10-22 09:08] LABS: ABS Basophils 0.1 10^3/uL (0.0-0.1); ABS Lymphocytes 2.4 10^3/uL (1.0-4.8); ABS Monocytes 1.5 10^3/uL (0.0-0.9); ABS Neutrophils 23.3 10^3/uL (1.5-7.6); ABS Nucleated RBC 0.02 10^3/ul; Hypochromasia 1+; Lymphocyte % 8.7 %; Nucleated Red Blood Cells % 0.1 %/100WBC (0.0-0.8)
[2023-10-22 10:40] VITALS: BP 138/85
== END 2023-10-22 15:10 | disposition home or self-care (01) | DRG 872 ==
LOC: EDHOLD 04:04 → ED 04:04 → MED 11:26 → SUATTDRO 10-19 11:23
PROVIDERS: ADMIT Student in an Organized Health Care Education/Training Program; ATTEND Hospitalist